=== PATIENT | male | born 2000 | race Caucasian/White ===

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

== ENCOUNTER 2023-02-02 20:41 | Emergency (ER) | payer BC ==
[2023-02-02] MEDS ORDERED: XYLOCAINE 1% HCL 20 ML MDV IJ ONE (20:42)
[2023-02-02 22:26] VITALS: TEMP 98
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
[2023-02-02 23:42] VITALS: RESP 20
[2023-02-02] MEDS ORDERED: Rocephin 1000 MG INJ IM ONE (23:50)
--- NOTE | 2023-02-02 23:51 | ERPHSYRPT ---
- History of Present Illness Time Seen by Provider: 02/03/23 00:03 Historian: patient Exam Limitations: no limitations Patient Subjective Stated Complaint: pt states 4 days ago started having pain in belly button, last night at work he noticed there was blood coming from inside belly button, this morning the drainage had turned to brown color, and at time he came to ED it is light pink in color. denies injury or accident to belly button. reports that the drainage has a foul odor. Triage Nursing Assessment: pt ambulated into room 9 independently with slow steady gait. pt is alert and oriented times three, able to speak in complete sentences, able to move all extremities, and with resp even and unlabored. small amt of bloody purulent drainage noted in belly button, site cleaned with normal saline. noted small pink moist section at the uppermost point of the belly button. no tunneling noted. denies fever, cough, chills, or other ill feelings. Physician History: Patient is a 24-year-old male presents to our ED for evaluation of drainage coming from his umbilicus. Symptoms started approximately 4 days ago. Symptoms have been progressive. No trauma. No fever. Patient has no systemic manifestations. Patient states that he observed it draining a brown fluid. Patient denies history of the same. Symptoms are mild to moderate in intensity. No specific worsening improving factors. Patient voices no other complaints or concerns at this time. Portions of this note were created with voice recognition technology. There may be grammatical, spelling, punctuation or sound alike errors Timing/Duration: day(s) (4 days ago) Activities at Onset: none Quality: aching Abdominal Pain Onset Location: other (Umbilical) Pain Radiation: no radiation Severity of Pain-Max: moderate Severity of Pain-Current: mild Modifying Factors: Improves With: nothing Associated Symptoms: denies symptoms Previous symptoms: no prior history Allergies/Adverse Reactions: No Known Drug Allergies Allergy (Verified 02/02/23 22:12) Hx Tetanus, Diphtheria Vaccination/Date Given: Yes Hx Influenza Vaccination/Date Given: No Hx Pneumococcal Vaccination/Date Given: No Immunizations Up to Date: Yes Travel Risk - International Travel Have you traveled outside of the country in past 3 weeks: No - Coronavirus Screening Are you exhibiting any of the following symptoms?: No Close contact with a COVID-19 positive Pt in past 14-21 Days: No - Vaccine Status Have you recieved a Covid-19 vaccination: No - Review of Systems Constitutional: No Symptoms, No Fever, No Chills Eyes: No Symptoms Ears, Nose, & Throat: No Symptoms Respiratory: No Symptoms, No Cough, No Dyspnea Cardiac: No Symptoms, No Chest Pain, No Edema, No Syncope Abdominal/Gastrointestinal: No Symptoms, No Abdominal Pain, No Nausea, No Vomiting, No Diarrhea Genitourinary Symptoms: No Symptoms, No Dysuria Musculoskeletal: No Symptoms, No Back Pain, No Neck Pain Skin: No Symptoms, No Rash Neurological: No Symptoms, No Dizziness, No Focal Weakness, No Sensory Changes Psychological: No Symptoms Endocrine: No Symptoms Hematologic/Lymphatic: No Symptoms Immunological/Allergic: No Symptoms All Other Systems: Reviewed and Negative - Past Medical History Pertinent Past Medical History: Yes Neurological History: Other ENT History: No Pertinent History Cardiac History: No Pertinent History Respiratory History: No Pertinent History Endocrine Medical History: No Pertinent History Musculoskeletal History: No Pertinent History GI Medical History: No Pertinent History History: No Pertinent History Psycho-Social History: No Pertinent History Male Reproductive Disorders: No Pertinent History Other Medical History: concussions per sports injury - Past Surgical History Past Surgical History: No Neuro Surgical History: No Pertinent History Cardiac: No Pertinent History Respiratory: No Pertinent History Gastrointestinal: No Pertinent History Genitourinary: No Pertinent History Musculoskeletal: No Pertinent History Male Surgical History: No Pertinent History - Social History Smoking Status: Never smoker Exposure to second hand smoke: No Drug Use: none Patient Lives Alone: No - Nursing Vital Signs Nursing Vital Signs: Initial Vital Signs Temperature 98.0 F 02/02/23 22:13 Pulse Rate 108 H 02/02/23 22:13 Respiratory Rate 16 02/02/23 22:13 Blood Pressure 158/103 02/02/23 22:13 O2 Sat by Pulse Oximetry 95 02/02/23 22:13 Pain Scale Pain Intensity 5 - Physical Exam General Appearance: no apparent distress, alert Eye Exam: PERRL/EOMI, eyes nml inspection Ears, Nose, Throat Exam: normal ENT inspection, pharynx normal, moist mucous membranes Neck Exam: normal inspection, non-tender, supple, full range of motion Respiratory Exam: normal breath sounds, lungs clear, No respiratory distress Cardiovascular Exam: regular rate/rhythm, normal heart sounds Gastrointestinal/Abdomen Exam: soft, other (At the base of the umbilicus there is irritated tissue. There appears to be cellulitis at the base. No draining lesions at this time.), No tenderness, No mass Back Exam: normal inspection, normal range of motion, No CVA tenderness, No vertebral tenderness Extremity Exam: normal inspection, normal range of motion, pelvis stable Neurologic Exam: alert, oriented x 3, cooperative, normal mood/affect, nml cerebellar function, sensation nml, No motor deficits Skin Exam: normal color, warm, dry Lymphatic Exam: No adenopathy SpO2 Interpretation: normal SpO2: 94 O2 Delivery: Room Air - Course Nursing assessment & vital signs reviewed: Yes - CT Exams Abdomen/Pelvis CT Interpretation: Tele-radiologist Report (Subcutaneous soft tissue thickening with edema under the umbilicus. Anterior to abdominal wall. Measuring 37 mm x 17 mm. Lung nodule) Ordered Tests: Active Orders 24 hr Category Date Time Status ABDOMEN AND PELVIS W/0 CONTRAS [CT] Stat Exams 02/02/23 22:30 Completed Medication Summary Discontinued Medications Generic Name Dose Route Start Last Admin Trade Name Maxim PRN Reason Stop Dose Admin Ceftriaxone Sodium 1,000 mg 02/02/23 23:50 02/02/23 23:56 Ceftriaxone Sodium 1000 Mg Inj Vial IM 02/02/23 23:51 1,000 mg STAT ONE Administration Ceftriaxone Sodium Confirm 02/02/23 23:56 Ceftriaxone Sodium 1000 Mg Inj Vial Administered 02/02/23 23:57 Dose 1,000 mg .ROUTE .FlxOne-MED ONE - Progress Progress: improved Progress Note: Spoke to Dr. Hernández of general surgery. I read the CT report to our surgeon. He feels patient may be discharged home with oral antibiotics. Patient received a dose of Rocephin IM in our ED. A prescription for Keflex was forwarded to patient's pharmacy. Per patient to call the [facility] office in the morning to schedule a follow-up appointment for either tomorrow or . Patient understands the instructions and will follow-up in the next few days with general surgery as discussed. Patient declined pain medication. Patient now resting comfortably. Mother at bedside. They voiced no other complaints or concerns at this time. Portions of this note were created with voice recognition technology. There may be grammatical, spelling, punctuation or sound alike errors Complexity of problems addressed is moderate, new diagnosis with uncertain prognosis Complexity of data reviewed and analyzed is moderate. CT scan reviewed. Findings correlated clinically with history and physical exam. Case discussed with on-call general surgeon Dr. Virgen who advised discharge with oral antibiotics and clinic follow-up. Risk of complication and or risk of morbidity/mortality of patient management is moderate. A prescription for antibiotic for the patient's pharmacy. Patient discharged home. Time to discharge patient approximately 15 minutes. Plan of care established for shared decision making. No social determinants of health present to impede follow-up. Patient voices no other complaints or concerns at this time. Portions of this note were created with voice recognition technology. There may be grammatical, spelling, punctuation or sound alike errors 02/03/23 00:11 02/03/23 00:17 Counseled pt/family regarding: diagnosis, need for follow-up, rad results - Departure Departure Disposition: Home Clinical Impression: Lung nodule, Cellulitis, umbilical Condition: Stable Critical Care Time: No Referrals: DOCTOR,NO FAMILY [Primary Care Provider] - Follow up/PCP as directed DENISE HIDALGO MD [ACTIVE STAFF] - Follow up/PCP as directed Additional Instructions: Discharge/Care Plan BABAR JACKSON was seen on 02/02/23 in the Emergency Room. The patient was counseled regarding Diagnosis,Lab results, Imaging studies, need for follow up and when to return to the Emergency Room. Prescriptions given: Discharge Note I have spoken with the patient and/or caregivers. I have explained the patient's condition, diagnosis and treatment plan based on the information available to me at this time. I have answered the patient's and/or caregiver's questions and addressed any concerns. The patient and/or caregivers have as good understanding of the patient's diagnosis, condition and treatment plan as can be expected at this point. The vital signs have been stable. The patient's condition is stable and appropriate for discharge from the emergency department. The patient will pursue further outpatient evaluation with the primary care physician or other designated or consulting physician as outlined in the discharge instructions. The patient and/or caregivers are agreeable to this plan of care and follow-up instructions have been explained in detail. The patient and/or caregivers have received these instruction. The patient/and or caregivers are aware that any significant change in condition or worsening of symptoms should prompt an immediate return to this or the closest emergency department or call 911. Prescriptions: Cephalexin Mh 500 mg [Keflex 500 mg] 500 mg PO TID #21 cap
[2023-02-02] MEDS ORDERED: Rocephin 1000 MG INJ ONE (23:56)
[2023-02-03 00:03] VITALS: BP 151/86; PULSE 89
[2023-02-03 00:11] VITALS: O2SAT 94
== END 2023-02-03 00:30 | disposition home or self-care (01) ==
LOC: ED 20:41
DX: L03.316 Cellulitis of umbilicus (principal); R91.1 Solitary pulmonary nodule; Z28.310 Unvaccinated for COVID-19
CPT/HCPCS: 74176; 96372; 99283; J0696

== ENCOUNTER 2023-10-09 08:41 | Emergency (ER) | payer BC ==
[2023-10-09 09:06] VITALS: RESP 18; TEMP 97
[2023-10-09] MEDS ORDERED: ROCEPHIN 1 GM / 100 ML NaCl 1 GM/100 ML IVPB IV ONE (09:12)
[2023-10-09] MEDS: ROCEPHIN 1 GM / 100 ML NaCl 1 GM/100 ML IVPB IV ONE (09:13)
[2023-10-09 09:15] LABS: Absolute Neutrophil Ct (ANC) 11.05 x10^3/uL (1.4-6.9); BASOPHIL % 0.4 % (0.0-0.4); Basophil (Absolute #) 0.07 x10^3/uL (0-0.4); Eosinophil % 0.5 % (0.00-5.0); Eosinophil (Absolute #) 0.09 x10^3/uL (0-0.5); Hematocrit 44.9 % (42-50); Hemoglobin 14.9 g/dL (12.5-18.0); IMMATURE GRAN # 0.09 x10^3u/L (0.00-0.03); IMMATURE GRAN % 0.5 % (0.00-0.4); Lymphocyte (Absolute #) 4.49 x10^3/uL (1.0-4.6); Lymphocytes % 26.2 % (24.0-44.0); Mean Cell Volume 86.7 fL (78-100); Mean Corpuscular Hemoglobin 28.8 pg (26-32); Mean Corpuscular Hgb Concent. 33.2 g/dL (32-36); Mean Platelet Volume 9.6 fL (7.5-11.0); Monocyte (Absolute #) 1.33 x10^3/uL (0.0-1.3); Monocytes % 7.8 % (0.0-12.0); Neutrophil % 64.6 % (36.0-66.0); Platelet Count 325 x10^3/uL (150-450); Red Blood Count 5.18 x10^6/uL (4.1-5.6); Red Cell Distribution Width 13.3 % (11.5-14.0); White Blood Count 17.1 x10^3/uL (4.0-10.5)
[2023-10-09 10:12] LABS: ALBUMIN 4.6 g/dL (3.5-5.0); ANION GAP 16.1 MEQ/L (5-15); BILIRUBIN,TOTAL 0.4 mg/dL (0.2-1.3); Calcium 9.8 mg/dL (8.4-10.2); Creatinine 1 0.99 mg/dL (0.66-1.25); EST GLOMERULAR FILTRATION RATE 111.2 ML/MIN; Potassium 4.3 mmol/L (3.5-5.1); Total Protein 8.4 g/dL (6.3-8.2)
--- NOTE | 2023-10-09 10:18 | XRAY ---
CLINICAL HISTORY: pain infection COMPARISON: Dated: 02/02/2023 TECHNIQUE: An axial CT scan of the abdomen and pelvis was performed with the intravenous administration of contrast material. Multiple reformats were obtained. One of the following dose reduction techniques were utilized for this exam: Automated exposure control, adjustment of the mA and/or kV according to patient size, use of iterative reconstruction FINDINGS: There is localized thickening of the skin and subcutaneous tissue of the umbilicus with central hypodensity. It measures 3.7 cm in AP dimension and 2.2 cm in transverse dimension. There is surrounding subcutaneous fat stranding. No intra-abdominal extension seen. The liver is of average size, displaying regular contour and homogeneous texture. No diffuse parenchymal changes or focal lesions could be detected. The normal hepatic vascular pattern is noted with no evidence of vascular distortion, thrombotic venous occlusion, or compromise of the hepatic biliary drainage. The spleen is of average size with no abnormal focal parenchymal attenuation or martinez splenic collection. Both kidneys are of average size, shape and parenchymal thickness with no evidence of stones, back pressure changes or space-occupying lesions. The other retroperitoneal structures including the pancreas, adrenal glands and great vessels are grossly within normal limits. The small and large bowel appear unremarkable. No evidence of acute appendicitis. No significant lymph tracie enlargement or ascetic fluid collection. The prostate is of average size and shape. Normal filling of the urinary bladder with no stones, masses, or diverticula. Bone window settings showed bilateral L5 pars interartciularis defects, otherwise no evidence of fractures or destructive lesions. Lung window settings showed a right basal unchanged subpleural nodule measures 9 mm with central calcification , otherwise normal appearance of both basal lung segments. IMPRESSION: 1. Umbilical region skin/subcutaneous tissue thickening and fat stranding denoting localized infection. Stable finding. 2. In the visualized lungs, unchanged right basal subpleural nodule. 3. Bilateral L5 pars interarticularis break. 4. No interval changes. Electronically Signed by: Nilesh Brar MD. (10/09/2023 10:14:00 EDT)
--- NOTE | 2023-10-09 10:31 | ERPHSYRPT ---
- History of Present Illness Time Seen by Provider: 10/09/23 09:15 Historian: patient, family Exam Limitations: no limitations Patient Subjective Stated Complaint: pt here for abd pain for 2 days, no fever, drainage from umbilicus. was sent from clinic Triage Nursing Assessment: pt walked in, resp easy,skin w/d/p, has redness and swelling around umbilicus. tender to touch, pt states has been drainging. non seen, Physician History: Patient is a 23-year-old white male who presents with a complaint of pain and redness around his umbilicus. Last January or so he had an episode of blood and pus from the umbilicus he was seen in the ER had a CT scan showed no abscess and he was treated for cellulitis.He was also instructed to follow-up with Dr. Hernández the surgeon but heDid not follow-up and had no trouble until 2 days ago when the started having pain again. Timing/Duration: day(s) (2) Activities at Onset: none Quality: throbbing Abdominal Pain Onset Location: periumbilical Pain Radiation: no radiation Severity of Pain-Max: mild Severity of Pain-Current: mild Allergies/Adverse Reactions: No Known Drug Allergies Allergy (Verified 10/09/23 09:06) Hx Tetanus, Diphtheria Vaccination/Date Given: No Hx Influenza Vaccination/Date Given: No Hx Pneumococcal Vaccination/Date Given: No Immunizations Up to Date: Yes Travel Risk - International Travel Have you traveled outside of the country in past 3 weeks: No - Emerging Infectious Disease Are you exhibiting symptoms associated with any current EIDs: Yes Symptoms: Abdominal Pain - Review of Systems Constitutional: No Fever, No Chills Eyes: No Symptoms Ears, Nose, & Throat: No Symptoms Respiratory: No Cough, No Dyspnea Cardiac: No Chest Pain, No Edema, No Syncope Abdominal/Gastrointestinal: No Abdominal Pain, No Nausea, No Vomiting, No Diarrhea Genitourinary Symptoms: No Dysuria Musculoskeletal: No Back Pain, No Neck Pain Skin: No Rash Neurological: No Dizziness, No Focal Weakness, No Sensory Changes Psychological: No Symptoms Endocrine: No Symptoms All Other Systems: Reviewed and Negative - Past Medical History Pertinent Past Medical History: Yes Neurological History: Other ENT History: No Pertinent History Cardiac History: No Pertinent History Respiratory History: No Pertinent History Endocrine Medical History: No Pertinent History Musculoskeletal History: No Pertinent History GI Medical History: No Pertinent History History: No Pertinent History Psycho-Social History: No Pertinent History Male Reproductive Disorders: No Pertinent History Other Medical History: concussions per sports injury - Past Surgical History Past Surgical History: No Neuro Surgical History: No Pertinent History Cardiac: No Pertinent History Respiratory: No Pertinent History Gastrointestinal: No Pertinent History Genitourinary: No Pertinent History Musculoskeletal: No Pertinent History Male Surgical History: No Pertinent History - Social History Smoking Status: Never smoker Exposure to second hand smoke: No Drug Use: none Patient Lives Alone: No - Nursing Vital Signs Nursing Vital Signs: Initial Vital Signs Blood Pressure 125/82 10/09/23 09:01 O2 Sat by Pulse Oximetry 100 10/09/23 09:01 Pain Scale Pain Intensity 7 - Physical Exam General Appearance: no apparent distress, alert Eye Exam: PERRL/EOMI, eyes nml inspection Ears, Nose, Throat Exam: normal ENT inspection, pharynx normal, moist mucous membranes Neck Exam: normal inspection, non-tender, supple, full range of motion Respiratory Exam: normal breath sounds, lungs clear, No respiratory distress Cardiovascular Exam: regular rate/rhythm, normal heart sounds Gastrointestinal/Abdomen Exam: soft, other (There is some slight warmth and redness around the umbilical area it is tender to per case palpation or expiration.), No tenderness, No mass Back Exam: normal inspection, normal range of motion, No CVA tenderness, No vertebral tenderness Extremity Exam: normal inspection, normal range of motion, pelvis stable Neurologic Exam: alert, oriented x 3, cooperative, normal mood/affect, nml cereb ellar function, sensation nml, No motor deficits Skin Exam: normal color, warm, dry SpO2: 100 - Course Nursing assessment & vital signs reviewed: Yes - CT Exams Abdomen/Pelvis CT Interpretation: Other (No abscess cellulitis in the periumbilical area) Ordered Tests: Active Orders 24 hr Category Date Time Status ABDOMEN AND PELVIS W CONTRAST [CT] Stat Exams 10/09/23 09:05 Completed CBC W DIFF Stat Lab 10/09/23 09:00 Completed CMP Stat Lab 10/09/23 09:00 Completed Medication Summary Discontinued Medications Generic Name Dose Route Start Last Admin Trade Name Freq PRN Reason Stop Dose Admin Ceftriaxone Sodium 1 gm in 100 mls @ 200 mls/hr 10/09/23 09:06 10/09/23 09:54 Rocephin 1 Gm / 100 Ml Nacl IV 10/09/23 09:35 Infused STAT ONE Infusion Ceftriaxone Sodium Confirm 10/09/23 09:12 Rocephin 1 Gm / 100 Ml Nacl Administered 10/09/23 09:13 Dose 1 gm in 100 mls @ ud IV .STK-MED ONE Lab/Rad Data: Laboratory Result Diagrams 10/09/23 09:00 10/09/23 09:00 Laboratory Results 10/09/23 10/09/23 Range/Units 09:00 09:00 WBC 17.1 H (4.0-10.5) x10^3/uL RBC 5.18 (4.1-5.6) x10^6/uL Hgb 14.9 (12.5-18.0) g/dL Hct 44.9 (42-50) % MCV 86.7 (78-100) fL MCH 28.8 (26-32) pg MCHC 33.2 (32-36) g/dL RDW 13.3 (11.5-14.0) % Plt Count 325 (150-450) x10^3/uL MPV 9.6 (7.5-11.0) fL Gran % 64.6 (36.0-66.0) % Immature Gran % (Auto) 0.5 H (0.00-0.4) % Nucleat RBC Rel Count 0.0 (0.00-0.1) % Eos # (Auto) 0.09 (0-0.5) x10^3/uL Immature Gran # (Auto) 0.09 H (0.00-0.03) x10^3u/L Absolute Lymphs (auto) 4.49 (1.0-4.6) x10^3/uL Absolute Monos (auto) 1.33 H (0.0-1.3) x10^3/uL Absolute Nucleated RBC 0.00 (0.00-0.01) x10^3u/L Lymphocytes % 26.2 (24.0-44.0) % Monocytes % 7.8 (0.0-12.0) % Eosinophils % 0.5 (0.00-5.0) % Basophils % 0.4 (0.0-0.4) % Absolute Granulocytes 11.05 H (1.4-6.9) x10^3/uL Basophils # 0.07 (0-0.4) x10^3/uL Sodium 142 (135-145) mmol/L Potassium 4.3 (3.5-5.1) mmol/L Chloride 104 (98-107) mmol/L Carbon Dioxide 26 (22-30) mmol/L Anion Gap 16.1 H (5-15) MEQ/L BUN 13 (9-20) mg/dL Creatinine 0.99 (0.66-1.25) mg/dL Estimated GFR 111.2 ML/MIN Glucose 98 (74-106) mg/dL Calcium 9.8 (8.4-10.2) mg/dL Total Bilirubin 0.40 (0.2-1.3) mg/dL AST 33 (17-59) U/L ALT 35 (0-50) U/L Alkaline Phosphatase 81 (38-126) U/L Serum Total Protein 8.4 H (6.3-8.2) g/dL Albumin 4.6 (3.5-5.0) g/dL - Progress Progress: unchanged Medical Desision Making - Diagnostic Testing Diagnostic test were ordered, analyzed, and reviewed by me: Yes Radiological Interpretation: Reviewed by me - Risk of complications Low Risk: Low risk of morbidity from additional dx testing or treatment - Departure Departure Disposition: Home Clinical Impression: Omphalitis in adult Condition: Stable Critical Care Time: No Referrals: DOCTOR,NO FAMILY [Primary Care Provider] - Follow up/PCP as directed Instructions: Abdominal pain Prescriptions: Cephalexin Mh 500 mg [Keflex 500 mg] 500 mg PO QID #40 cap
[2023-10-09 10:46] VITALS: BP 122/66; PULSE 88; O2SAT 99
== END 2023-10-09 10:46 | disposition home or self-care (01) ==
LOC: ED 08:41
DX: L08.82 Omphalitis not of newborn (principal); R10.33 Periumbilical pain
CPT/HCPCS: 36415; 74177; 80053; 85025; 96365; 99284; J0696